=== PATIENT | female | born 1980 | race Caucasian/White ===

== ENCOUNTER 2020-12-24 19:50 | Emergency (ER) | payer MEDICAID ==
[~2020-12-24] VITALS: Ht 172.7 cm; Wt 90.9 kg
[2020-12-24 19:56] VITALS: TEMP 97.2
[2020-12-24 20:05] LABS: COLLECTION METHOD CLEAN CATCH
[2020-12-24 20:07] LABS: BASO # 0.1 K/mm3 (0.0-0.2); BASO % 0.4 % (0.0-2.0); EOS # 0.2 K/mm3 (0.0-0.7); EOS % 1.5 % (0-4.0); GRAN # 11.7 K/mm3 (1.4-6.5); GRAN % 71.7 % (42.2-75.2); HEMATOCRIT 46.4 % (37.0-47.0); HEMOGLOBIN 15.4 g/dl (12.5-16.0); LYMPH # 3.1 K/mm3 (1.2-3.4); LYMPH % 19.1 % (20.0-51.0); MEAN CELL VOLUME 93 fl (80.0-100.0); MEAN CORPUSCULAR HEMOGLOBIN 31 pg (27.0-31.0); MEAN CORPUSCULAR HGB CONC 33 g/dl (33.0-37.0); MEAN PLATELET VOLUME 10.2 fl (7.4-10.4); MONO # 1.2 K/mm3 (0.1-0.6); PLATELET COUNT 279 K/mm3 (130-400); RED BLOOD COUNT 5.01 M/mm3 (4.10-5.30); REDCELL DISTRIBUTION WIDTH-CV 13.6 % (11.5-14.5)
[2020-12-24 20:12] LABS: MUCOUS Present /lpf; PH 5 (5-8); SQUAMOUS EPITHELIAL 0-2 /hpf; URINE APPEARANCE Clear; URINE BACTERIA Rare /hpf; URINE BILIRUBIN Negative (NEGATIVE); URINE BLOOD Negative (NEGATIVE); URINE COLOR Yellow; URINE GLUCOSE Negative (NEGATIVE); URINE KETONE Negative (NEGATIVE); URINE LEUKOCYTE ESTERASE Negative (NEGATIVE); URINE NITRATE Negative (NEGATIVE); URINE PROTEIN(semi-quant) Negative (NEGATIVE); URINE RBC 0-2 /hpf; URINE UROBILINOGEN Negative (NEGATIVE)
[2020-12-24 20:24] LABS: ALANINE AMINOTRANSFERASE 14 U/L (0-55); ALBUMIN 2.9 gm/dL (3.5-5.0); ALKALINE PHOSPHATASE 53 U/L (40-150); ANION GAP 9 mmol/L (7-16); AST,SGOT 17 U/L (5-34); BILIRUBIN,TOTAL 0.2 mg/dL (0.2-1.2); BLOOD UREA NITROGEN 13 mg/dL (7-19); CALCIUM 8.1 mg/dL (8.4-10.2); CARBON DIOXIDE 18 mmol/L (22-29); CHLORIDE 112 mmol/L (98-107); CREATININE, serum 0.71 mg/dL (0.57-1.11); GLUCOSE 103 mg/dL (70-99); POTASSIUM 3.8 mmol/L (3.5-4.5); SODIUM 139 mmol/L (136-145); TOTAL PROTEIN 5.4 gm/dL (6.2-8.1)
[2020-12-24 20:25] LABS: ACETAMINOPHEN < 1.0 ug/mL (10-30); ALCOHOL(ethanol),MEDICAL < 10 mg/dL (0-10); SALICYLATE < 5.0 mg/dL (15.0-30.0)
[2020-12-24 20:30] LABS: TRICYCLIC ANTIDEPRESS URINE NEGATIVE
[2020-12-24 20:44] LABS: TSH w REFLEX 1.285 uIU/mL (0.350-4.940)
[2020-12-25 15:04] VITALS: BP 121/78
[2020-12-25 16:15] VITALS: PULSE 72
== END 2020-12-25 16:15 | disposition home or self-care (01) ==
LOC: COL.ER 19:50
PROVIDERS: Emergency Medicine
DX: T42.4X2A Poisoning by benzodiazepines, intentional self-harm, initial encounter (principal); D72.829 Elevated white blood cell count, unspecified; E87.2 Acidosis; Z20.822 Contact with and (suspected) exposure to COVID-19; X83.8XXA Intentional self-harm by other specified means, initial encounter
CPT/HCPCS: J1630; J7030

== ENCOUNTER 2020-12-31 22:03 | Emergency (ER) | payer MEDICAID ==
[~2020-12-31] VITALS: Ht 162.6 cm; Wt 81.8 kg
[2020-12-31 22:35] LABS: BASO # 0.1 K/mm3 (0.0-0.2); BASO % 0.4 % (0.0-2.0); EOS # 0.2 K/mm3 (0.0-0.7); EOS % 1.6 % (0-4.0); GRAN % 66.6 % (42.2-75.2); HEMATOCRIT 44.5 % (37.0-47.0); HEMOGLOBIN 15.1 g/dl (12.5-16.0); LYMPH # 3.4 K/mm3 (1.2-3.4); LYMPH % 25.2 % (20.0-51.0); MEAN CELL VOLUME 92 fl (80.0-100.0); MEAN CORPUSCULAR HEMOGLOBIN 31 pg (27.0-31.0); MEAN CORPUSCULAR HGB CONC 34 g/dl (33.0-37.0); MEAN PLATELET VOLUME 10.4 fl (7.4-10.4); MONO # 0.8 K/mm3 (0.1-0.6); MONO % 5.8 % (1.7-9.3); PLATELET COUNT 298 K/mm3 (130-400); RED BLOOD COUNT 4.86 M/mm3 (4.10-5.30); REDCELL DISTRIBUTION WIDTH-CV 12.9 % (11.5-14.5)
[2020-12-31 22:50] LABS: ALBUMIN 2.7 gm/dL (3.5-5.0); BILIRUBIN,TOTAL 0.3 mg/dL (0.2-1.2); CALCIUM 7.8 mg/dL (8.4-10.2); CREATININE, serum 0.8 mg/dL (0.57-1.11); POTASSIUM 3.1 mmol/L (3.5-4.5); TOTAL PROTEIN 5.3 gm/dL (6.2-8.1)
[2020-12-31 23:06] LABS: COLLECTION METHOD CLEAN CATCH
[2020-12-31 23:15] LABS: MUCOUS Present /lpf; PH 5 (5-8); URINE APPEARANCE Cloudy; URINE BACTERIA Rare /hpf; URINE BILIRUBIN Negative (NEGATIVE); URINE BLOOD Negative (NEGATIVE); URINE COLOR Yellow; URINE GLUCOSE Negative (NEGATIVE); URINE KETONE Negative (NEGATIVE); URINE LEUKOCYTE ESTERASE 1+ (NEGATIVE); URINE NITRATE Positive (NEGATIVE); URINE PROTEIN(semi-quant) Negative (NEGATIVE)
[2021-01-01] MEDS ORDERED: MACROBID 1100 MG/CAP PO (00:32)
[2021-01-01 01:01] VITALS: BP 108/74; PULSE 86; TEMP 98.7
== END 2021-01-01 01:01 | disposition home or self-care (01) ==
LOC: COL.ER 22:03
PROVIDERS: Physician Assistant
DX: N39.0 Urinary tract infection, site not specified (principal); D72.829 Elevated white blood cell count, unspecified; E87.6 Hypokalemia
CPT/HCPCS: J1790; J1885; J2405; J7030

== ENCOUNTER 2021-09-13 21:25 | Inpatient (IN) | payer MEDICAID ==
[~2021-09-13] VITALS: Ht 309.9 cm; Wt 71.9 kg
[~2021-09-13 21:25] MED LIST: MACROBID 1100 MG/CAP PO
[2021-09-13 21:43] LABS: BASO % 0.3 % (0.0-2.0); EOS # 0.2 K/mm3 (0.0-1.2); EOS % 1.2 % (0.0-4.0); GRAN # 11.3 K/mm3 (3.8-22.5); GRAN % 78.4 % (42.0-75.0); HEMOGLOBIN 12.3 g/dl (15.0-24.0); LYMPH % 13.9 % (62.0-72.0); MEAN CELL VOLUME 92 fl (102.0-115.0); MEAN CORPUSCULAR HEMOGLOBIN 31 pg (33-39); MEAN CORPUSCULAR HGB CONC 34 g/dl (32.0-36.0); MEAN PLATELET VOLUME 9.9 fl (7.4-10.4); MONO # 0.8 K/mm3 (0.1-3.0); MONO % 5.8 % (1.0-10.0); PLATELET COUNT 401 K/mm3 (130-400); REDCELL DISTRIBUTION WIDTH-CV 14.5 % (11.5-16.5)
[2021-09-13 21:46] LABS: HEMATOCRIT 36.7 % (44.0-70.0)
[2021-09-13 22:07] LABS: ALANINE AMINOTRANSFERASE 8 U/L (0-55); ALBUMIN 3.8 gm/dL (2.8-4.4); ALKALINE PHOSPHATASE 56 U/L; ANION GAP 14 mmol/L (7-16); AST,SGOT 23 U/L (5-34); BILIRUBIN,TOTAL 0.2 mg/dL (0.2-6); BLOOD UREA NITROGEN 15 mg/dL (5-17); CALCIUM 8.8 mg/dL (7.6-10.4); CARBON DIOXIDE 20 mmol/L (12-22); CHLORIDE 110 mmol/L (98-113); CREATININE, serum 0.79 mg/dL (0.57-1.11); GLUCOSE 92 mg/dL (40-60); POTASSIUM 3.5 mmol/L (3.5-4.5); SODIUM 144 mmol/L (136-145); TOTAL PROTEIN 6.5 gm/dL (0.0-5.9)
[2021-09-13 22:08] LABS: ACETAMINOPHEN < 1.0 ug/mL (10-30); ALCOHOL(ethanol),MEDICAL < 10 mg/dL (0-10); SALICYLATE < 5.0 mg/dL (15.0-30.0)
[2021-09-13 22:47] LABS: TRICYCLIC ANTIDEPRESS URINE NEGATIVE
[2021-09-14] VITALS (813 sets, daily range): BP systolic 108–118; BP diastolic 72–80; PULSE 71–80; TEMP 97.7–98.4; O2SAT 51–100
--- NOTE | 2021-09-14 01:06 | NUR ---
Received report from ED nurse
[2021-09-14 01:11] LABS: MAGNESIUM 1.8 mg/dL (1.5-2.2)
--- NOTE | 2021-09-14 01:17 | NUR ---
Patient arrives to ICU room 4 via ED stretcher. Patient arrives obtunded; does not follow verbal commands. Initial vitals within normal limits, she is on room air. Some snoring respirations noted. Patient covered in remnants of stool; per report received from ED patient has had 6+ loose, watery stools. Rectal tube placed per orders received from hospitalistBarby. She arrives with a casey catheter draining clear yellow urine. Bed in lowest position, all alarms on.
--- NOTE | 2021-09-14 02:01 | NUR ---
Patient arrives obtunded. She is not alert and does not follow verbal commands. Speech is limited and mumbled. No known next of kin. Unable to complete vaccination/social history or suicide risk assessment at this time.
--- NOTE | 2021-09-14 04:45 | NUR ---
Patient wakes with obtainment of EKG. Patient is alert and unaware of situation or location. She states her name and . Speech is still slurred but understandable. Patient reports taking approximately 29 1mg tabs of klonopin, 60 10mg tabs of buspirone, and 30 tabs of 20mg celexa with the intent of ending her life. Barby notified. Orders received to initiate suicide precautions.
[2021-09-14 05:17] LABS: BASO % 0.3 % (0.0-2.0); EOS # 0.2 K/mm3 (0.0-1.2); EOS % 1.5 % (0.0-4.0); GRAN # 7.7 K/mm3 (3.8-22.5); GRAN % 66.6 % (42.0-75.0); HEMATOCRIT 38.9 % (44.0-70.0); HEMOGLOBIN 12.6 g/dl (15.0-24.0); LYMPH # 2.8 K/mm3 (5.6-21.6); LYMPH % 24.3 % (62.0-72.0); MEAN CELL VOLUME 95 fl (102.0-115.0); MEAN CORPUSCULAR HEMOGLOBIN 31 pg (33-39); MEAN CORPUSCULAR HGB CONC 32 g/dl (32.0-36.0); MEAN PLATELET VOLUME 9.7 fl (7.4-10.4); MONO # 0.8 K/mm3 (0.1-3.0); PLATELET COUNT 344 K/mm3 (130-400); REDCELL DISTRIBUTION WIDTH-CV 14.6 % (11.5-16.5)
--- NOTE | 2021-09-14 05:27 | NUR ---
PT HAS BEEN LETHARGIC UNTIL AROUSAL FOR EKG THIS AM. SHE UNDERSTANDS SHE IS IN HOSPITAL BUT CONTINUES TO STRUGGLE IN CLEAR SPEECH. SHE WAS ABLE TO COMMUNICATE WITH RN AND I ABOUT MEDICATIONS THAT WERE TAKEN AND THAT THE ATTEMPT TO TAKE HER LIFE WAS THE GOAL. RN NOTIFIED GUY SNEED
[2021-09-14 05:47] LABS: ALANINE AMINOTRANSFERASE 14 U/L (0-55); ALBUMIN 3.6 gm/dL (2.8-4.4); ALKALINE PHOSPHATASE 54 U/L; ANION GAP 10 mmol/L (7-16); AST,SGOT 20 U/L (5-34); BILIRUBIN,TOTAL 0.4 mg/dL (0.2-10.0); BLOOD UREA NITROGEN 12 mg/dL (5-17); CALCIUM 8.5 mg/dL (7.6-10.4); CARBON DIOXIDE 22 mmol/L (12-22); CHLORIDE 111 mmol/L (98-113); CREATININE, serum 0.71 mg/dL (0.57-1.11); GLUCOSE 85 mg/dL (50-80); SODIUM 143 mmol/L (136-145); TOTAL PROTEIN 6.3 gm/dL (0.0-9.9)
--- NOTE | 2021-09-14 06:05 | NUR ---
Poison control updated.
[2021-09-14 07:17] LABS: TSH w REFLEX 0.67 uIU/mL (0.350-4.940)
--- NOTE | 2021-09-14 07:50 | NUR ---
report recieved from DARLEEN Myles. PT is currenty resting in bed. Assessment completed. VSS. Pt opens eyes to name but quickly goes back to sleep. PT does not follow commands, but does withdraw from pain. NS and potassium running per eMAR. [place] in place. Pt appears to be resting comfortably.
[2021-09-14 11:01] LABS: CLOSTRIDIUM DIFF A/B NEG; CLOSTRIDIUM DIFF A/B INTERP NonToxigenic C.diff
--- NOTE | 2021-09-14 11:55 | NUR ---
SW met with patient to complete intake. Patient states that she lives alone in [place]. Point of contact is her father Jameson Marshall, . Patient provides that she does not utilize DME and is independent with ADL's. PCP is unknown, but states that she does have one. [facility]. Patient states that she plans to return to her home upon DC and has no concerns with doing so. Patient stated during intake that she was going to be leaving to home soon and began to cry stating "she does so much for people, and her kids are with her dad currently" Patient states that she would benefit from having resources for the community. SW provided and explained documented resources provided. SW informed by nurse and physician that when she is medically cleared will have [facility] screen. SW will continue to follow. DC plan: unknown
--- NOTE | 2021-09-14 12:05 | NUR ---
PT IS AGITATED AND THREATENING TO LEAVE. PT DOES NOT WANT TO HAVE TO WAIT ANY LONGER TO BE SCREENED. PT STATES SHE IS A GROWN WOMAN DOES NOT HAVE TO DO ANYTHING WE SAY. PT EXPLAINS SHE HAS NO MONEY AT HOME, NO CAR AND HER KIDS ARE LIVING WITH HER DAD AND THAT IS WHY SHE TOOK THE ALL OF HER MEDICINE. PT EXCLAIMS THAT SHE NEEDS TO LEAVE AND GET HER CIGARETTES AND WE CANT EXPECT HER TO BE HERE AND NOT SMOKE.
--- NOTE | 2021-09-14 12:24 | NUR ---
[facility] [facility] [facility] DC'D AT THIS TIME
[2021-09-14 12:26] LABS: ALBUMIN 3.3 gm/dL (3.5-5.0); BILIRUBIN,TOTAL 0.5 mg/dL (0.2-1.2); CALCIUM 8.1 mg/dL (8.4-10.2); CREATININE, serum 0.72 mg/dL (0.57-1.11); POTASSIUM 4.7 mmol/L (3.5-4.5); TOTAL PROTEIN 5.9 gm/dL (6.2-8.1)
--- NOTE | 2021-09-14 12:39 | NUR ---
stopped by but nothing needed at this time.
--- NOTE | 2021-09-14 16:40 | NUR ---
1434- [facility] PT AGREES TO GO IN PATIENT AT [facility]. EDGE [employer]NER CALLED TO ASSIST PATIENT WITH CLOTHING. PT VERBALIZES UNDERSTANDING OF DISCHARGE INFORMATION AND EDUCATION. [id number] PT LEAVES WITH [facility] TO [facility].
== END 2021-09-14 15:58 | DRG 918 ==
LOC: ICU → COL.ER 21:25 → ICU 09-14 00:05 → EDBD 09-14 00:05 → ICU 09-14 15:58
PROVIDERS: Emergency Medicine; Nurse Practitioner Family; ADMIT Internal Medicine
DX: T43.592A Poisoning by other antipsychotics and neuroleptics, intentional self-harm, initial encounter (principal); F32.A Depression, unspecified; D50.9 Iron deficiency anemia, unspecified; D75.839 Thrombocytosis, unspecified; R19.7 Diarrhea, unspecified; E87.6 Hypokalemia; T43.222A Poisoning by selective serotonin reuptake inhibitors, intentional self-harm, initial encounter; Y92.89 Other specified places as the place of occurrence of the external cause
CPT/HCPCS: A4314; J3480; J7030

== ENCOUNTER 2021-09-23 19:42 | Emergency (ER) | payer MEDICAID ==
[~2021-09-23] VITALS: Ht 167.6 cm; Wt 100.0 kg
[2021-09-23 19:49] VITALS: TEMP 97.6
[2021-09-23] MEDS ORDERED: CELEXA 20MG20 MG/TAB PO (20:16)
[2021-09-23] MEDS ORDERED: BUSPAR10 MG PO (20:16)
[2021-09-23] MEDS ORDERED: KLONOPIN 1MG1 MG (20:17)
[2021-09-23 20:40] LABS: COLLECTION METHOD CLEAN CATCH
[2021-09-23 20:45] LABS: MUCOUS Present (NOT PRESENT); PH 7 (5-8); SQUAMOUS EPITHELIAL 0-2 /hpf (0-10); URINE APPEARANCE Clear (CLEAR/HAZY); URINE BACTERIA None Seen /hpf (NONE SEEN); URINE BLOOD Negative (NEGATIVE); URINE COLOR Yellow (YELLOW); URINE GLUCOSE Negative (NEGATIVE); URINE KETONE Negative (NEGATIVE); URINE NITRATE Negative (NEGATIVE); URINE PROTEIN(semi-quant) Negative (NEGATIVE); URINE RBC None Seen /hpf (0-2); URINE UROBILINOGEN Negative (NEGATIVE)
[2021-09-23 20:49] LABS: BASO # 0.1 K/mm3 (0.0-0.2); BASO % 0.5 % (0.0-2.0); EOS # 0.4 K/mm3 (0.0-0.7); EOS % 3.6 % (0.0-4.0); GRAN % 54.9 % (42.2-75.2); HEMATOCRIT 39.2 % (37.0-47.0); LYMPH # 3.6 K/mm3 (1.2-3.4); LYMPH % 33.2 % (20.0-51.0); MEAN CELL VOLUME 92 fl (80.0-100.0); MEAN CORPUSCULAR HEMOGLOBIN 30 pg (27-31); MEAN CORPUSCULAR HGB CONC 33 g/dl (33.0-37.0); MONO # 0.8 K/mm3 (0.1-0.6); MONO % 7.5 % (1.7-9.3); PLATELET COUNT 333 K/mm3 (130-400); RED BLOOD COUNT 4.28 M/mm3 (4.10-5.30); REDCELL DISTRIBUTION WIDTH-CV 13.9 % (11.5-14.5)
[2021-09-23 21:02] LABS: TRICYCLIC ANTIDEPRESS URINE NEGATIVE
[2021-09-23 21:06] LABS: ALANINE AMINOTRANSFERASE 10 U/L (0-55); ALBUMIN 3.6 gm/dL (3.5-5.0); ALKALINE PHOSPHATASE 77 U/L (40-150); ANION GAP 11 mmol/L (7-16); AST,SGOT 13 U/L (5-34); BILIRUBIN,TOTAL 0.1 mg/dL (0.2-1.2); BLOOD UREA NITROGEN 15 mg/dL (7-19); CALCIUM 9.2 mg/dL (8.4-10.2); CARBON DIOXIDE 23 mmol/L (22-29); CHLORIDE 107 mmol/L (98-107); CREATININE, serum 0.76 mg/dL (0.57-1.11); GLUCOSE 88 mg/dL (70-99); SODIUM 141 mmol/L (136-145); TOTAL PROTEIN 6.9 gm/dL (6.2-8.1)
[2021-09-23 21:07] LABS: ACETAMINOPHEN < 1.0 ug/mL (10-30); ALCOHOL(ethanol),MEDICAL < 10 mg/dL (0-10); SALICYLATE < 5.0 mg/dL (15.0-30.0)
[2021-09-23 23:32] VITALS: BP 117/75; PULSE 75
== END 2021-09-23 23:40 ==
LOC: COL.ER 19:42
PROVIDERS: Nurse Practitioner Primary Care
DX: S80.01XA Contusion of right knee, initial encounter (principal); R45.851 Suicidal ideations; F17.200 Nicotine dependence, unspecified, uncomplicated; Z28.311 Partially vaccinated for COVID-19

== ENCOUNTER 2021-09-24 11:56 | Emergency (ER) | payer MEDICAID ==
[~2021-09-24] VITALS: Ht 162.6 cm; Wt 75.0 kg
[~2021-09-24 11:56] MED LIST changes: +BUSPAR10 MG PO; +CELEXA 20MG20 MG/TAB PO; +KLONOPIN 1MG1 MG
[2021-09-24 12:04] VITALS: TEMP 98.6
[2021-09-24 12:34] LABS: COLLECTION METHOD CLEAN CATCH
[2021-09-24 12:40] LABS: MUCOUS Present (NOT PRESENT); PH 6 (5-8); SQUAMOUS EPITHELIAL 0-2 /hpf (0-10); URINE APPEARANCE Clear (CLEAR/HAZY); URINE BACTERIA None Seen /hpf (NONE SEEN); URINE BLOOD Negative (NEGATIVE); URINE COLOR Yellow (YELLOW); URINE GLUCOSE Negative (NEGATIVE); URINE KETONE Trace (NEGATIVE); URINE NITRATE Negative (NEGATIVE); URINE PROTEIN(semi-quant) Negative (NEGATIVE); URINE RBC 0-2 /hpf (0-2); URINE UROBILINOGEN Negative (NEGATIVE)
[2021-09-24 12:41] LABS: BASO % 0.5 % (0.0-2.0); EOS # 0.2 K/mm3 (0.0-0.7); EOS % 2.5 % (0.0-4.0); GRAN # 5.7 K/mm3 (1.4-6.5); GRAN % 65.1 % (42.2-75.2); HEMATOCRIT 38.4 % (37.0-47.0); HEMOGLOBIN 12.7 g/dl (12.5-16.0); LYMPH # 2.1 K/mm3 (1.2-3.4); LYMPH % 24.1 % (20.0-51.0); MEAN CELL VOLUME 93 fl (80.0-100.0); MEAN CORPUSCULAR HEMOGLOBIN 31 pg (27-31); MEAN CORPUSCULAR HGB CONC 33 g/dl (33.0-37.0); MEAN PLATELET VOLUME 9.9 fl (7.4-10.4); MONO # 0.7 K/mm3 (0.1-0.6); MONO % 7.5 % (1.7-9.3); PLATELET COUNT 333 K/mm3 (130-400); RED BLOOD COUNT 4.13 M/mm3 (4.10-5.30); REDCELL DISTRIBUTION WIDTH-CV 13.7 % (11.5-14.5)
[2021-09-24 12:54] LABS: TRICYCLIC ANTIDEPRESS URINE NEGATIVE
[2021-09-24 13:00] LABS: ALANINE AMINOTRANSFERASE 11 U/L (0-55); ALBUMIN 3.5 gm/dL (3.5-5.0); ALKALINE PHOSPHATASE 67 U/L (40-150); ANION GAP 9 mmol/L (7-16); AST,SGOT 13 U/L (5-34); BILIRUBIN,TOTAL 0.2 mg/dL (0.2-1.2); BLOOD UREA NITROGEN 11 mg/dL (7-19); CALCIUM 8.9 mg/dL (8.4-10.2); CARBON DIOXIDE 23 mmol/L (22-29); CHLORIDE 107 mmol/L (98-107); CREATININE, serum 0.73 mg/dL (0.57-1.11); GLUCOSE 90 mg/dL (70-99); POTASSIUM 3.9 mmol/L (3.5-4.5); SODIUM 139 mmol/L (136-145); TOTAL PROTEIN 6.4 gm/dL (6.2-8.1)
[2021-09-24 13:01] LABS: ACETAMINOPHEN < 1.0 ug/mL (10-30); SALICYLATE < 5.0 mg/dL (15.0-30.0)
[2021-09-24 13:02] LABS: ALCOHOL(ethanol),MEDICAL < 10 mg/dL (0-10)
[2021-09-25 15:00] VITALS: BP 120/77; PULSE 90
== END 2021-09-25 15:00 ==
LOC: COL.ER 11:56
PROVIDERS: Nurse Practitioner
DX: R45.851 Suicidal ideations (principal); F17.210 Nicotine dependence, cigarettes, uncomplicated; Z20.822 Contact with and (suspected) exposure to COVID-19

== ENCOUNTER 2021-10-08 09:49 | Emergency (ER) | payer MEDICAID ==
[~2021-10-08] VITALS: Ht 162.6 cm; Wt 79.1 kg
[2021-10-08 10:04] VITALS: TEMP 98.7
[2021-10-08] MEDS ORDERED: DESYREL 50MG50 MG PO (11:13)
[2021-10-08] MEDS ORDERED: CELEXA 20MG20 MG/TAB PO (11:13)
[2021-10-08] MEDS ORDERED: VISTARIL50 MG PO (11:14)
[2021-10-08] MEDS ORDERED: PROTONIX 40MG T40 MG PO (11:14)
[2021-10-08] MEDS ORDERED: KLONOPIN 1MG1 MG PO (11:15)
[2021-10-08] MEDS ORDERED: BUSPAR10 MG PO (11:15)
[2021-10-08 11:23] LABS: COLLECTION METHOD CLEAN CATCH
[2021-10-08 11:30] LABS: BASO # 0.1 K/mm3 (0.0-0.2); BASO % 0.6 % (0.0-2.0); EOS # 0.2 K/mm3 (0.0-0.7); GRAN # 7.3 K/mm3 (1.4-6.5); GRAN % 67.7 % (42.2-75.2); HEMOGLOBIN 12.1 g/dl (12.5-16.0); LYMPH # 2.6 K/mm3 (1.2-3.4); LYMPH % 24.1 % (20.0-51.0); MEAN CELL VOLUME 92 fl (80.0-100.0); MEAN CORPUSCULAR HEMOGLOBIN 31 pg (27-31); MEAN CORPUSCULAR HGB CONC 33 g/dl (33.0-37.0); MEAN PLATELET VOLUME 9.9 fl (7.4-10.4); MONO # 0.6 K/mm3 (0.1-0.6); MONO % 5.3 % (1.7-9.3); PLATELET COUNT 331 K/mm3 (130-400); RED BLOOD COUNT 3.94 M/mm3 (4.10-5.30); REDCELL DISTRIBUTION WIDTH-CV 13.2 % (11.5-14.5)
[2021-10-08 11:33] LABS: HEMATOCRIT 36.3 % (37.0-47.0)
[2021-10-08 11:37] LABS: MUCOUS Present (NOT PRESENT); SQUAMOUS EPITHELIAL 0-2 /hpf (0-10); URINE BACTERIA None Seen /hpf (NONE SEEN); URINE RBC None Seen /hpf (0-2)
[2021-10-08 11:52] LABS: ALANINE AMINOTRANSFERASE 14 U/L (0-55); ALBUMIN 3.5 gm/dL (3.5-5.0); ALKALINE PHOSPHATASE 54 U/L (40-150); ANION GAP 9 mmol/L (7-16); AST,SGOT 13 U/L (5-34); BILIRUBIN,TOTAL 0.2 mg/dL (0.2-1.2); BLOOD UREA NITROGEN 18 mg/dL (7-19); CALCIUM 8.5 mg/dL (8.4-10.2); CARBON DIOXIDE 23 mmol/L (22-29); CHLORIDE 108 mmol/L (98-107); CREATININE, serum 0.73 mg/dL (0.57-1.11); GLUCOSE 86 mg/dL (70-99); POTASSIUM 3.8 mmol/L (3.5-4.5); SODIUM 140 mmol/L (136-145); TOTAL PROTEIN 6.4 gm/dL (6.2-8.1)
[2021-10-08 11:53] LABS: ALCOHOL(ethanol),MEDICAL < 10 mg/dL (0-10)
[2021-10-08 12:39] LABS: PH 5 (5-8); URINE APPEARANCE Clear (CLEAR/HAZY); URINE COLOR Yellow (YELLOW); URINE GLUCOSE Negative (NEGATIVE); URINE KETONE Negative (NEGATIVE); URINE PROTEIN(semi-quant) 1+ (NEGATIVE)
[2021-10-08 12:40] LABS: URINE BLOOD Negative (NEGATIVE); URINE NITRATE Negative (NEGATIVE); URINE UROBILINOGEN Negative (NEGATIVE)
[2021-10-08 12:45] VITALS: BP 117/79; PULSE 63
== END 2021-10-08 12:53 | disposition home or self-care (01) ==
LOC: COL.ER 09:49
PROVIDERS: Nurse Practitioner
DX: R53.81 Other malaise (principal); F17.210 Nicotine dependence, cigarettes, uncomplicated